=== PATIENT | male | born 1965 | race Caucasian/White ===

== ENCOUNTER 2016-10-18 12:53 | Emergency (ER) | payer OTHER ==
--- NOTE | 2016-10-18 14:16 | ED NURSING NOTES ---
Clinical Report - Nurses [facility] [address] [place] [address] 10/18/2016 12:54 Patient: NARDA NAJERA TRIAGE Triage time 1333 PM. Acuity: LEVEL 4. Chief Complaint: INJURY TO RIGHT HAND. Alert. No acute distress. HERSON COMA SCORE: [place] Coma Scale: 15- eyes open spontaneously (4); best verbal response- oriented x 4 (5); best motor response- obeys commands (6). --13:41 Cindy Muro R.N. 13:34 10/18/16. BP: 133/68 (regular adult cuff) taken on the left arm, while sitting. HR: 71. RR: 12. O2 saturation: 97% on room air. Temp: 98.2 F (oral). Pain level now: 10. --13:41 Cindy Muro R.N. Weight: 83.9 kg stated. Height/Length: 72 inches Per Patient. BMI: 25.1. --13:36 Cindy Muro R.N. Medications None. --13:37 Cindy Muro R.N. Allergies Codeine. --13:43 Cindy Muro R.N. Medication/allergy information source: the patient. --13:41 Cindy Muro R.N. History Arrived by private vehicle. Historian: patient. ( Pt states got bit 2 days ago while cleaning out his garage, felt a prick while wearing gloves, did noticed a couple of spiders around. Pt did try to anjali it himself last night and today, swollen and red with pain. Pt does admit having chills/no fevers). This occurred (2 days). Occurred at home. Mechanism of injury: he sustained an animal bite. (pt thinks is a spider "it has happened before"). Treatment ARMATURE TESTER: None. PAST MEDICAL HX: Tetanus status: unknown. Immunizations: status is unknown. SOCIAL HX: Former smoker. History of drug use: marijuana. Recently used drugs today. No alcohol use. No infectious disease exposure. ABUSE ASSESSMENT: No report of abuse. SELF HARM ASSESSMENT: A self harm assessment was performed. The patient answered "no" to the question "Do you have thoughts of harming or killing yourself?" and "Have you recently had thoughts about harming or killing others?". FALL RISK ASSESSMENT: Fall risk assessment completed. No fall risk identified. NUTRITIONAL RISK ASSESSMENT: The nutritional risk assessment revealed no deficiencies. FUNCTIONAL ASSESSMENT: Functional assessment: no impairments noted. LEARNING NEEDS ASSESSMENT: The learning needs assessment revealed no barriers. SKIN INTEGRITY ASSESSMENT: Skin integrity risk assessment completed. No skin integrity risk identified. --13:41 Cindy Muro R.N. PROBLEMS: Sepsis. Immunizations. Neck Pain. Tetanus Status. Cellulitis. Abscess. --13:37 Cindy Muro R.N. ADDITIONAL SURGERIES: Neck Surgery. --13:37 Cindy Muro R.N. Interventions ID band on patient. --13:41 Cindy Muro R.N. PHYSICAL ASSESSMENT Ambulatory to room. GENERAL / NEURO / PSYCH: Oriented X 4. Appears in no acute distress. EXTREMITIES: Capillary refill is less than 2 seconds in the extremities. Extremity pulses are within normal limits. Right hand: tenderness, swelling and erythema (right pinky finger). No deformity. SKIN: Skin intact. Skin is warm and dry. --13:42 Cindy Muro R.N. NURSING PROGRESS NOTES The initial plan of care for this patient has been created This plan of care was discussed with the patient. Right upper arm elevated. Reassurance given. Call light placed in reach. Brakes of bed on. Brakes of chair on. --13:42 Cindy Muro R.N. 13:45 10/18/2016 Bactrim DS (Sulfamethoxazole-TMP DS) PO Tablets 1 tab given. Allergies verified and confirmed 5 rights. --13:45 Cindy Muro R.N. 13:45 10/18/2016 Keflex (Cephalexin) PO Tablets 500 mg given. Allergies verified and confirmed 5 rights. --13:45 Cindy Muro R.N. DISPOSITION / DISCHARGE Departure time: 1450 PM. Condition at departure: improved and stable. The goals identified in the patient's plan of care were met. No learning barriers present. Discharge instructions provided and reviewed with the patient. Reviewed medication(s) side effects, precautions, dosing and course information. Prescription(s) given to the patient. Reviewed skin care instructions. Activity restrictions (minimal use of injured extremity and rest) reviewed. Patient verbalized understanding. Written instructions provided in Uzbek. ( PT expresses understanding of follow-up, and instructions on wound care.). No diet instructions or stop smoking instructions. The patient was discharged by the physician occupational therapy assistant. He was discharged home and unaccompanied at time of discharge. He left the Emergency Department ambulatory and via private vehicle. Patient driving. FALL RISK ASSESSMENT: Fall risk assessment completed. No fall risk identified. --14:50 Cindy Muro R.N. 14:47 10/18/16. BP: 128/64. HR: 71. RR: 12. O2 saturation: 97% on room air. Temp: 98.3 F (oral). Pain level now: 0/10. --14:50 Cindy Muro R.N. Locked/Released at 10/18/2016 14:51 by Cindy Muro R.N.
--- NOTE | 2016-10-18 14:16 | ED ORDER SUMMARY ---
..... Patient: NARDA NAJERA OrderSheet [facility] VisitID: [id number] [address] [place] [address] 51y, M Registration Date/Time: 10/18/2016 ORDER SHEET Weight: 83.9 kg (stated) Allergies: Codeine GENERAL ORDERS: MEDICATION ORDERS: Bactrim DS PO (Tablet 800-160 mg) 1 tab (NOW) (13:36 10/18/2016 Desean P.A.-C) (13:45 Radha R.N.) Keflex PO 500 mg (NOW) (13:36 10/18/2016 Desean P.A.-C) (13:45 Radha R.N.) IV FLUIDS: ORDER SHEET NOTES: [Electronically signed by Cindy Muro R.N. (14:51 10/18/2016)] [Electronically signed by Delores Baldwin P.ADiane-Hardik (14:58 10/18/2016)] [Electronically locked/signed by Cindy Muro R.N. (14:51 10/18/2016)]
--- NOTE | 2016-10-18 14:16 | ED CLINICAL REPORT ---
Clinical Report - Physicians/Mid Levels [facility] [address] [place] [address] 10/18/2016 12:54 Patient: NARDA NAJERA Time Seen: 13:41 Oct 18 2016. Arrived- By private vehicle. Historian- patient. HISTORY OF PRESENT ILLNESS Chief Complaint: SKIN RASH, LESION, BOIL and TENDER AREA. This started just prior to arrival and is still present. It is described as painful. It has been located on the right upper extremity. (Patient reports possible spider bites of the right fifth digit. Some drainage from the area on the right 5th digit). REVIEW OF SYSTEMS No fever, chills, difficulty breathing, hoarseness or headache. No abdominal pain or difficulty with urination. All systems otherwise negative, except as recorded above. PAST HISTORY Tdap< 5 years. SOCIAL HISTORY Former smoker. History of drug use: marijuana. ADDITIONAL NOTES The nursing notes have been reviewed. PHYSICAL EXAM Vital Signs: 10/18/2016 13:34 BP: 133/68. HR: 71. RR: 12. O2 saturation: 97%. Temp: 98.2 F. Pain level now: 5/10. Appearance: Alert. ENT: Ears normal. Nose normal. Neck: No lymphadenopathy. CVS: Normal heart rate and rhythm. Heart sounds normal. Respiratory: No respiratory distress. Breath sounds normal. Skin: Small area of erythema with tenderness and warmth (R. 5th digit with dorsal surface distal to the dip, with erythema, swelling, Full extension, and rom.). Cellulitis. Extremities: (full extension/ flexion. No lymphagetic streaking). PROGRESS AND PROCEDURES Incision & Drainage of Abscess: Time: 14:57 Oct 18 2016. Time-out completed immediately before the procedure. The abscess is located (R. 5th digit). The risks of the procedure, benefits and alternatives were explained. Anesthesia provided by digital block using 0.25% Marcaine. Skin cleansed with Betadine. The abscess was incised with a #11 surgical blade. A small amount of pus was drained. Course of Care: Patient with no signs of lymphangitic streaking, no signs of tenosynovitis. Patient very stable. Afebrile. Tetanus immunization updated in the ER. To follow-up outpatient. Patient is stable. Physical exam findings are improved. Patient/family counseled. Disposition: Discharged. CLINICAL IMPRESSION Cellulitis of the right little finger. INSTRUCTIONS (place finger into soaking water with salt/ or soap that is very warm and keep such there dipping for 5-10 mins, repeat this 5x daily Follow up with [facility] to ensure improvement or your regular [facility] ). Prescription Medications: Hydrocodone/APAP 5mg / 325mg: take 1 orally every 6 hours as needed for pain. Dispense ten (10). No refill. Bactrim DS 800 mg / 160 mg: take 1 tablet orally every 12 hours for 10 days. No refill. Substitution is permissible. Keflex 500 mg: take 1 capsule orally every 8 hours for 10 days. No refill. Substitution is permissible. (Electronically signed by eDlores Baldwin P.A.-C 10/18/2016 14:58)
--- NOTE | 2016-10-18 14:16 | ED NURSING NOTES ---
Clinical Report - Nurses [facility] [address] [place] [address] 10/18/2016 12:54 Patient: NARDA NAJERA TRIAGE Triage time 1333 PM. Acuity: LEVEL 4. Chief Complaint: INJURY TO RIGHT HAND. Alert. No acute distress. HERSON COMA SCORE: [place] Coma Scale: 15- eyes open spontaneously (4); best verbal response- oriented x 4 (5); best motor response- obeys commands (6). --13:41 Cindy Muro R.N. 13:34 10/18/16. BP: 133/68 (regular adult cuff) taken on the left arm, while sitting. HR: 71. RR: 12. O2 saturation: 97% on room air. Temp: 98.2 F (oral). Pain level now: 10. --13:41 Cindy Muro R.N. Weight: 83.9 kg stated. Height/Length: 72 inches Per Patient. BMI: 25.1. --13:36 Cindy Muro R.N. Medications None. --13:37 Cindy Muro R.N. Allergies Codeine. --13:43 Cindy Muro R.N. Medication/allergy information source: the patient. --13:41 Cindy Muro R.N. History Arrived by private vehicle. Historian: patient. ( Pt states got bit 2 days ago while cleaning out his garage, felt a prick while wearing gloves, did noticed a couple of spiders around. Pt did try to anjali it himself last night and today, swollen and red with pain. Pt does admit having chills/no fevers). This occurred (2 days). Occurred at home. Mechanism of injury: he sustained an animal bite. (pt thinks is a spider "it has happened before"). Treatment GROCERY BAGGER: None. PAST MEDICAL HX: Tetanus status: unknown. Immunizations: status is unknown. SOCIAL HX: Former smoker. History of drug use: marijuana. Recently used drugs today. No alcohol use. No infectious disease exposure. ABUSE ASSESSMENT: No report of abuse. SELF HARM ASSESSMENT: A self harm assessment was performed. The patient answered "no" to the question "Do you have thoughts of harming or killing yourself?" and "Have you recently had thoughts about harming or killing others?". FALL RISK ASSESSMENT: Fall risk assessment completed. No fall risk identified. NUTRITIONAL RISK ASSESSMENT: The nutritional risk assessment revealed no deficiencies. FUNCTIONAL ASSESSMENT: Functional assessment: no impairments noted. LEARNING NEEDS ASSESSMENT: The learning needs assessment revealed no barriers. SKIN INTEGRITY ASSESSMENT: Skin integrity risk assessment completed. No skin integrity risk identified. --13:41 Cindy Muro R.N. PROBLEMS: Sepsis. Immunizations. Neck Pain. Tetanus Status. Cellulitis. Abscess. --13:37 Cindy Muro R.N. ADDITIONAL SURGERIES: Neck Surgery. --13:37 Cindy Muro R.N. Interventions ID band on patient. --13:41 Cindy Muro R.N. PHYSICAL ASSESSMENT Ambulatory to room. GENERAL / NEURO / PSYCH: Oriented X 4. Appears in no acute distress. EXTREMITIES: Capillary refill is less than 2 seconds in the extremities. Extremity pulses are within normal limits. Right hand: tenderness, swelling and erythema (right pinky finger). No deformity. SKIN: Skin intact. Skin is warm and dry. --13:42 Cindy Muro R.N. NURSING PROGRESS NOTES The initial plan of care for this patient has been created This plan of care was discussed with the patient. Right upper arm elevated. Reassurance given. Call light placed in reach. Brakes of bed on. Brakes of chair on. --13:42 Cindy Muro R.N. 13:45 10/18/2016 Bactrim DS (Sulfamethoxazole-TMP DS) PO Tablets 1 tab given. Allergies verified and confirmed 5 rights. --13:45 Cindy Muro R.N. 13:45 10/18/2016 Keflex (Cephalexin) PO Tablets 500 mg given. Allergies verified and confirmed 5 rights. --13:45 Cindy Muro R.N. DISPOSITION / DISCHARGE Departure time: 1450 PM. Condition at departure: improved and stable. The goals identified in the patient's plan of care were met. No learning barriers present. Discharge instructions provided and reviewed with the patient. Reviewed medication(s) side effects, precautions, dosing and course information. Prescription(s) given to the patient. Reviewed skin care instructions. Activity restrictions (minimal use of injured extremity and rest) reviewed. Patient verbalized understanding. Written instructions provided in Mongolian. ( PT expresses understanding of follow-up, and instructions on wound care.). No diet instructions or stop smoking instructions. The patient was discharged by the physician school health assistant. He was discharged home and unaccompanied at time of discharge. He left the Emergency Department ambulatory and via private vehicle. Patient driving. FALL RISK ASSESSMENT: Fall risk assessment completed. No fall risk identified. --14:50 Cindy Muro R.N. 14:47 10/18/16. BP: 128/64. HR: 71. RR: 12. O2 saturation: 97% on room air. Temp: 98.3 F (oral). Pain level now: 0/10. --14:50 Cindy Muro R.N. Locked/Released at 10/18/2016 14:51 by Cindy Muro R.N.
--- NOTE | 2016-10-18 14:16 | ED ORDER SUMMARY ---
..... Patient: NARDA NAJERA OrderSheet [facility] VisitID: [id number] [address] [place] [address] 51y, M Registration Date/Time: 10/18/2016 ORDER SHEET Weight: 83.9 kg (stated) Allergies: Codeine GENERAL ORDERS: MEDICATION ORDERS: Bactrim DS PO (Tablet 800-160 mg) 1 tab (NOW) (13:36 10/18/2016 Desean P.A.-C) (13:45 Radha R.N.) Keflex PO 500 mg (NOW) (13:36 10/18/2016 Desean P.A.-C) (13:45 Radha R.N.) IV FLUIDS: ORDER SHEET NOTES: [Electronically signed by Cindy Muro R.N. (14:51 10/18/2016)] [Electronically signed by Delores Baldwin P.ADiane-Hardik (14:58 10/18/2016)] [Electronically locked/signed by Cindy Muro R.N. (14:51 10/18/2016)]
--- NOTE | 2016-10-18 14:16 | ED CLINICAL REPORT ---
Clinical Report - Physicians/Mid Levels [facility] [address] [place] [address] 10/18/2016 12:54 Patient: NARDA NAJERA Time Seen: 13:41 Oct 18 2016. Arrived- By private vehicle. Historian- patient. HISTORY OF PRESENT ILLNESS Chief Complaint: SKIN RASH, LESION, BOIL and TENDER AREA. This started just prior to arrival and is still present. It is described as painful. It has been located on the right upper extremity. (Patient reports possible spider bites of the right fifth digit. Some drainage from the area on the right 5th digit). REVIEW OF SYSTEMS No fever, chills, difficulty breathing, hoarseness or headache. No abdominal pain or difficulty with urination. All systems otherwise negative, except as recorded above. PAST HISTORY Tdap< 5 years. SOCIAL HISTORY Former smoker. History of drug use: marijuana. ADDITIONAL NOTES The nursing notes have been reviewed. PHYSICAL EXAM Vital Signs: 10/18/2016 13:34 BP: 133/68. HR: 71. RR: 12. O2 saturation: 97%. Temp: 98.2 F. Pain level now: 5/10. Appearance: Alert. ENT: Ears normal. Nose normal. Neck: No lymphadenopathy. CVS: Normal heart rate and rhythm. Heart sounds normal. Respiratory: No respiratory distress. Breath sounds normal. Skin: Small area of erythema with tenderness and warmth (R. 5th digit with dorsal surface distal to the dip, with erythema, swelling, Full extension, and rom.). Cellulitis. Extremities: (full extension/ flexion. No lymphagetic streaking). PROGRESS AND PROCEDURES Incision & Drainage of Abscess: Time: 14:57 Oct 18 2016. Time-out completed immediately before the procedure. The abscess is located (R. 5th digit). The risks of the procedure, benefits and alternatives were explained. Anesthesia provided by digital block using 0.25% Marcaine. Skin cleansed with Betadine. The abscess was incised with a #11 surgical blade. A small amount of pus was drained. Course of Care: Patient with no signs of lymphangitic streaking, no signs of tenosynovitis. Patient very stable. Afebrile. Tetanus immunization updated in the ER. To follow-up outpatient. Patient is stable. Physical exam findings are improved. Patient/family counseled. Disposition: Discharged. CLINICAL IMPRESSION Cellulitis of the right little finger. INSTRUCTIONS (place finger into soaking water with salt/ or soap that is very warm and keep such there dipping for 5-10 mins, repeat this 5x daily Follow up with [facility] to ensure improvement or your regular [facility] ). Prescription Medications: Hydrocodone/APAP 5mg / 325mg: take 1 orally every 6 hours as needed for pain. Dispense ten (10). No refill. Bactrim DS 800 mg / 160 mg: take 1 tablet orally every 12 hours for 10 days. No refill. Substitution is permissible. Keflex 500 mg: take 1 capsule orally every 8 hours for 10 days. No refill. Substitution is permissible. (Electronically signed by Delores Baldwin P.A.-C 10/18/2016 14:58)
--- NOTE | 2016-10-18 14:58 | ED MED RECONCILIATION SUMMARY ---
Patient: NARDA NAJERA Medication Reconciliation Report [facility] VisitID: [id number] [address] [place] [address] 51y, M Registration Date/Time: 10/18/2016 Weight: 83.9 kg Height/Length: 72 in. BMI: 25.1 ALLERGIES: Codeine The patient's Home Medications are listed below: NONE. The source(s) of the original Home Medication information: patient The following Medications were given to the patient in the Emergency Department: Bactrim DS [PO] PO 1 tab, administered: 10/18/2016 1:45:00 PM Keflex [PO] PO 500 mg, administered: 10/18/2016 1:45:00 PM The following Medications were prescribed to the patient: Hydrocodone/APAP 5mg / 325mg: take 1 orally every 6 hours as needed for pain. Dispense ten (10). No refill. -- Delores Baldwin, P.A.-Hardik Bactrim DS 800 mg / 160 mg: take 1 tablet orally every 12 hours for 10 days. No refill. Substitution is permissible. -- Delores Baldwin, P.A.-C Keflex 500 mg: take 1 capsule orally every 8 hours for 10 days. No refill. Substitution is permissible. -- Delores Baldwin, P.A.-C
--- NOTE | 2016-10-18 14:58 | ED MAR SUMMARY ---
..... Medication Administration Record [facility] [address] [place] [address] Patient: NARDA NAJERA Visit ID: [id number] 51y, M Weight: 83.9 kg Height/Length: 72 in BMI: 25.1 ALLERGIES: Codeine Given 13:45 10/18/2016 Cindy Muro RDianeN. Medication Administered: BACTRIM DS [PO] (SULFAMETHOXAZOLE-TMP DS), Dose: 1 tab Tablets PO. Medication Ordered: Bactrim DS PO (Tablet 800-160 mg) 1 tab (NOW). Given 13:45 10/18/2016 Cindy Muro, R.N. Medication Administered: KEFLEX [PO] (CEPHALEXIN), Dose: 500 mg Tablets PO. Medication Ordered: Keflex PO 500 mg (NOW).
--- NOTE | 2016-10-18 14:58 | ED DISCHARGE INSTRUCTIONS ---
Patient: NARDA NAJERA General Instructions [facility] VisitID: [id number] [address] [place] [address] 51y, M Registration Date/Time: 10/18/2016 Cellulitis of the right little finger. INSTRUCTIONS (place finger into soaking water with salt/ or soap that is very warm and keep such there dipping for 5-10 mins, repeat this 5x daily Follow up with [facility] to ensure improvement or your regular [facility] ). Prescription Medications: Hydrocodone/APAP 5mg / 325mg: take 1 orally every 6 hours as needed for pain. Dispense ten (10). No refill. Bactrim DS 800 mg / 160 mg: take 1 tablet orally every 12 hours for 10 days. No refill. Substitution is permissible. Keflex 500 mg: take 1 capsule orally every 8 hours for 10 days. No refill. Substitution is permissible. ADDITIONAL INFORMATION Cellulitis You have an infection of the skin known as cellulitis. This usually starts with a scrape, cut, insect bite, blister or other opening in the skin which becomes infected. This is a serious condition. It must be watched closely to be sure the infection is not spreading. With antibiotic treatment, the size of the red area will gradually shrink in size until the skin returns to normal. This will take 7-10 days. The red area should never increase in size once the antibiotic medicine has been started. Occasionally, an infection will be resistant to one antibiotic and another one will have to be used. Home Care: 1) Limit the use of the affected part, since excess movement can cause the infection to spread. 2) If the infection is on your leg, walk as little as possible during the first few days of the treatment. Keep your leg elevated while sitting. This will reduce swelling. 3) Take all of the antibiotic medicine exactly as directed until it is gone. Be careful not to miss any doses, especially during the first seven days. Follow Up with your doctor or this facility as directed. Check the infected area daily for the warning signs listed below. Get Prompt Medical Attention if any of the following occur: -- Spreading area of redness -- Increasing swelling or pain -- Appearance of pus or drainage -- Fever over 100.4 F (38.0 C) oral, or over 101.4 F (38.6 C) rectal, after two days on antibiotics Hydrocodone Bitartrate, Acetaminophen Oral tablet What is this medicine? ACETAMINOPHEN; HYDROCODONE (a set a GEORGES drew fen; wanda droe KOE done) is a pain reliever. It is used to treat mild to moderate pain. How should I use this medicine? Take this medicine by mouth. Swallow it with a full glass of water. Follow the directions on the prescription label. If the medicine upsets your stomach, take the medicine with food or milk. Do not take more than you are told to take. Talk to your clinical sociologist regarding the use of this medicine in children. This medicine is not approved for use in children. What side effects may I notice from receiving this medicine? Side effects that you should report to your doctor or health multi care technician as soon as possible: allergic reactions like skin rash, itching or hives, swelling of the face, lips, or tongue breathing problems confusion feeling faint or lightheaded, falls stomach pain yellowing of the eyes or skin Side effects that usually do not require medical attention (report to your doctor or health multi care technician if they continue or are bothersome): nausea, vomiting stomach upset What may interact with this medicine? alcohol antihistamines isoniazid medicines for depression, anxiety, or psychotic disturbances medicines for sleep muscle relaxants naltrexone narcotic medicines (opiates) for pain phenobarbital ritonavir tramadol What if I miss a dose? If you miss a dose, take it as soon as you can. If it is almost time for your next dose, take only that dose. Do not take double or extra doses. Where should I keep my medicine? Keep out of the reach of children. This medicine can be abused. Keep your medicine in a safe place to protect it from theft. Do not share this medicine with anyone. Selling or giving away this medicine is dangerous and against the law. Store at room temperature between 15 and 30 degrees C (59 and 86 degrees F). Protect from light. Keep container tightly closed. Throw away any unused medicine after the expiration date. Discard unused medicine and used packaging carefully. Pets and children can be harmed if they find used or lost packages. What should I tell my health care provider before I take this medicine? They need to know if you have any of these conditions: brain tumor Crohn's disease, inflammatory bowel disease, or ulcerative colitis drink more than 3 alcohol-containing drinks per day drug abuse or addiction head injury heart or circulation problems kidney disease or problems going to the bathroom liver disease lung disease, asthma, or breathing problems an unusual or allergic reaction to acetaminophen, hydrocodone, other opioid analgesics, other medicines, foods, dyes, or preservatives or trying to get breast-feeding What should I watch for while using this medicine? Tell your doctor or health multi care technician if your pain does not go away, if it gets worse, or if you have new or a different type of pain. You may develop tolerance to the medicine. Tolerance means that you will need a higher dose of the medicine for pain relief. Tolerance is normal and is expected if you take the medicine for a long time. Do not suddenly stop taking your medicine because you may develop a severe reaction. Your body becomes used to the medicine. This does NOT mean you are addicted. Addiction is a behavior related to getting and using a drug for a non-medical reason. If you have pain, you have a medical reason to take pain medicine. Your doctor will tell you how much medicine to take. If your doctor wants you to stop the medicine, the dose will be slowly lowered over time to avoid any side effects. You may get drowsy or dizzy when you first start taking the medicine or change doses. Do not drive, use machinery, or do anything that may be dangerous until you know how the medicine affects you. Stand or sit up slowly. There are different types of narcotic medicines (opiates) for pain. If you take more than one type at the same time, you may have more side effects. Give your health care provider a list of all medicines you use. Your doctor will tell you how much medicine to take. Do not take more medicine than directed. Call emergency for help if you have problems breathing. The medicine will cause constipation. Try to have a bowel movement at least every 2 to 3 days. If you do not have a bowel movement for 3 days, call your doctor or health multi care technician. Too much acetaminophen can be very dangerous. Do not take Tylenol (acetaminophen) or medicines that contain acetaminophen with this medicine. Many non-prescription medicines contain acetaminophen. Always read the labels carefully. Sulfamethoxazole, Trimethoprim Oral tablet What is this medicine? SULFAMETHOXAZOLE; TRIMETHOPRIM or SMX-TMP (suhl fuh meth OK radha zohl; trye METH oh prim) is a combination of a sulfonamide antibiotic and a second antibiotic, trimethoprim. It is used to treat or prevent certain kinds of bacterial infections. It will not work for colds, flu, or other viral infections. How should I use this medicine? Take this medicine by mouth with a full glass of water. Follow the directions on the prescription label. Take your medicine at regular intervals. Do not take it more often than directed. Do not skip doses or stop your medicine early. Talk to your clinical sociologist regarding the use of this medicine in children. Special care may be needed. This medicine has been used in children as young as 2 months of age. What side effects may I notice from receiving this medicine? Side effects that you should report to your doctor or health multi care technician as soon as possible: allergic reactions like skin rash or hives, swelling of the face, lips, or tongue breathing problems fever or chills, sore throat irregular heartbeat, chest pain joint or muscle pain pain or difficulty passing urine red pinpoint spots on skin redness, blistering, peeling or loosening of the skin, including inside the mouth unusual bleeding or bruising unusually weak or tired yellowing of the eyes or skin Side effects that usually do not require medical attention (report to your doctor or health multi care technician if they continue or are bothersome): diarrhea dizziness headache loss of appetite nausea, vomiting nervousness What may interact with this medicine? Do not take this medicine with any of the following medications: aminobenzoate potassium dofetilide metronidazole This medicine may also interact with the following medications: ASIA inhibitors like benazepril, enalapril, lisinopril, and ramipril cyclosporine digoxin diuretics indomethacin medicines for diabetes methenamine methotrexate phenytoin potassium supplements pyrimethamine sulfinpyrazone tricyclic antidepressants warfarin What if I miss a dose? If you miss a dose, take it as soon as you can. If it is almost time for your next dose, take only that dose. Do not take double or extra doses. Where should I keep my medicine? Keep out of the reach of children. Store at room temperature between 20 to 25 degrees C (68 to 77 degrees F). Protect from light. Throw away any unused medicine after the expiration date. What should I tell my health care provider before I take this medicine? They need to know if you have any of these conditions: anemia asthma being treated with anticonvulsants if you frequently drink alcohol containing drinks kidney disease liver disease low level of folic acid or [id number] dehydrogenase poor nutrition or malabsorption porphyria severe allergies thyroid disorder an unusual or allergic reaction to sulfamethoxazole, trimethoprim, sulfa drugs, other medicines, foods, dyes, or preservatives or trying to get breast-feeding What should I watch for while using this medicine? Tell your doctor or health multi care technician if your symptoms do not improve. Drink several glasses of water a day to reduce the risk of kidney problems. Do not treat diarrhea with over the counter products. Contact your doctor if you have diarrhea that lasts more than 2 days or if it is severe and watery. This medicine can make you more sensitive to the sun. Keep out of the sun. If you cannot avoid being in the sun, wear protective clothing and use a sunscreen. Do not use sun lamps or tanning beds/booths. Cephalexin Monohydrate Oral tablet What is this medicine? CEPHALEXIN (sef a CHINO in) is a cephalosporin antibiotic. It is used to treat certain kinds of bacterial infections It will not work for colds, flu, or other viral infections. How should I use this medicine? Take this medicine by mouth with a full glass of water. Follow the directions on the prescription label. This medicine can be taken with or without food. Take your medicine at regular intervals. Do not take your medicine more often than directed. Take all of your medicine as directed even if you think you are better. Do not skip doses or stop your medicine early. Talk to your clinical sociologist regarding the use of this medicine in children. While this drug may be prescribed for selected conditions, precautions do apply. What side effects may I notice from receiving this medicine? Side effects that you should report to your doctor or health multi care technician as soon as possible: allergic reactions like skin rash, itching or hives, swelling of the face, lips, or tongue breathing problems pain or trouble passing urine redness, blistering, peeling or loosening of the skin, including inside the mouth severe or watery diarrhea unusually weak or tired yellowing of the eyes, skin Side effects that usually do not require medical attention (report to your doctor or health multi care technician if they continue or are bothersome): gas or heartburn genital or anal irritation headache joint or muscle pain nausea, vomiting What may interact with this medicine? probenecid some other antibiotics What if I miss a dose? If you miss a dose, take it as soon as you can. If it is almost time for your next dose, take only that dose. Do not take double or extra doses. There should be at least 4 to 6 hours between doses. Where should I keep my medicine? Keep out of the reach of children. Store at room temperature between 59 and 86 degrees F (15 and 30 degrees C). Throw away any unused medicine after the expiration date. What should I tell my health care provider before I take this medicine? They need to know if you have any of these conditions: kidney disease stomach or intestine problems, especially colitis an unusual or allergic reaction to cephalexin, other cephalosporins, penicillins, other antibiotics, medicines, foods, dyes or preservatives or trying to get breast-feeding What should I watch for while using this medicine? Tell your doctor or health multi care technician if your symptoms do not begin to improve in a few days. Do not treat diarrhea with over the counter products. Contact your doctor if you have diarrhea that lasts more than 2 days or if it is severe and watery. If you have diabetes, you may get a false-positive result for sugar in your urine. Check with your doctor or health multi care technician. You have been given the following additional information: Cellulitis Hydrocodone Bitartrate, Acetaminophen Oral tablet Sulfamethoxazole, Trimethoprim Oral tablet Cephalexin Monohydrate Oral tablet (Electronically signed by Delores Baldwin P.A.-C 10/18/2016 14:58)
--- NOTE | 2016-10-18 14:58 | ED MED RECONCILIATION SUMMARY ---
Patient: NARDA NAJERA Medication Reconciliation Report [facility] VisitID: [id number] [address] [place] [address] 51y, M Registration Date/Time: 10/18/2016 Weight: 83.9 kg Height/Length: 72 in. BMI: 25.1 ALLERGIES: Codeine The patient's Home Medications are listed below: NONE. The source(s) of the original Home Medication information: patient The following Medications were given to the patient in the Emergency Department: Bactrim DS [PO] PO 1 tab, administered: 10/18/2016 1:45:00 PM Keflex [PO] PO 500 mg, administered: 10/18/2016 1:45:00 PM The following Medications were prescribed to the patient: Hydrocodone/APAP 5mg / 325mg: take 1 orally every 6 hours as needed for pain. Dispense ten (10). No refill. -- Delores Baldwin, P.A.-Hardik Bactrim DS 800 mg / 160 mg: take 1 tablet orally every 12 hours for 10 days. No refill. Substitution is permissible. -- Delores Baldwin, P.A.-C Keflex 500 mg: take 1 capsule orally every 8 hours for 10 days. No refill. Substitution is permissible. -- Delores Baldwin, P.A.-C
--- NOTE | 2016-10-18 14:58 | ED MAR SUMMARY ---
..... Medication Administration Record [facility] [address] [place] [address] Patient: NARDA NAJERA Visit ID: [id number] 51y, M Weight: 83.9 kg Height/Length: 72 in BMI: 25.1 ALLERGIES: Codeine Given 13:45 10/18/2016 Cindy Muro RDianeN. Medication Administered: BACTRIM DS [PO] (SULFAMETHOXAZOLE-TMP DS), Dose: 1 tab Tablets PO. Medication Ordered: Bactrim DS PO (Tablet 800-160 mg) 1 tab (NOW). Given 13:45 10/18/2016 Cindy Muro, R.N. Medication Administered: KEFLEX [PO] (CEPHALEXIN), Dose: 500 mg Tablets PO. Medication Ordered: Keflex PO 500 mg (NOW).
--- NOTE | 2016-10-18 14:58 | ED DISCHARGE INSTRUCTIONS ---
Patient: NARDA NAJERA General Instructions [facility] VisitID: [id number] [address] [place] [address] 51y, M Registration Date/Time: 10/18/2016 Cellulitis of the right little finger. INSTRUCTIONS (place finger into soaking water with salt/ or soap that is very warm and keep such there dipping for 5-10 mins, repeat this 5x daily Follow up with [facility] to ensure improvement or your regular [facility] ). Prescription Medications: Hydrocodone/APAP 5mg / 325mg: take 1 orally every 6 hours as needed for pain. Dispense ten (10). No refill. Bactrim DS 800 mg / 160 mg: take 1 tablet orally every 12 hours for 10 days. No refill. Substitution is permissible. Keflex 500 mg: take 1 capsule orally every 8 hours for 10 days. No refill. Substitution is permissible. ADDITIONAL INFORMATION Cellulitis You have an infection of the skin known as cellulitis. This usually starts with a scrape, cut, insect bite, blister or other opening in the skin which becomes infected. This is a serious condition. It must be watched closely to be sure the infection is not spreading. With antibiotic treatment, the size of the red area will gradually shrink in size until the skin returns to normal. This will take 7-10 days. The red area should never increase in size once the antibiotic medicine has been started. Occasionally, an infection will be resistant to one antibiotic and another one will have to be used. Home Care: 1) Limit the use of the affected part, since excess movement can cause the infection to spread. 2) If the infection is on your leg, walk as little as possible during the first few days of the treatment. Keep your leg elevated while sitting. This will reduce swelling. 3) Take all of the antibiotic medicine exactly as directed until it is gone. Be careful not to miss any doses, especially during the first seven days. Follow Up with your doctor or this facility as directed. Check the infected area daily for the warning signs listed below. Get Prompt Medical Attention if any of the following occur: -- Spreading area of redness -- Increasing swelling or pain -- Appearance of pus or drainage -- Fever over 100.4 F (38.0 C) oral, or over 101.4 F (38.6 C) rectal, after two days on antibiotics Hydrocodone Bitartrate, Acetaminophen Oral tablet What is this medicine? ACETAMINOPHEN; HYDROCODONE (a set a GEORGES drew fen; wanda droe KOE done) is a pain reliever. It is used to treat mild to moderate pain. How should I use this medicine? Take this medicine by mouth. Swallow it with a full glass of water. Follow the directions on the prescription label. If the medicine upsets your stomach, take the medicine with food or milk. Do not take more than you are told to take. Talk to your annealing torch operator regarding the use of this medicine in children. This medicine is not approved for use in children. What side effects may I notice from receiving this medicine? Side effects that you should report to your doctor or health healthcare insurance sales agent as soon as possible: allergic reactions like skin rash, itching or hives, swelling of the face, lips, or tongue breathing problems confusion feeling faint or lightheaded, falls stomach pain yellowing of the eyes or skin Side effects that usually do not require medical attention (report to your doctor or health healthcare insurance sales agent if they continue or are bothersome): nausea, vomiting stomach upset What may interact with this medicine? alcohol antihistamines isoniazid medicines for depression, anxiety, or psychotic disturbances medicines for sleep muscle relaxants naltrexone narcotic medicines (opiates) for pain phenobarbital ritonavir tramadol What if I miss a dose? If you miss a dose, take it as soon as you can. If it is almost time for your next dose, take only that dose. Do not take double or extra doses. Where should I keep my medicine? Keep out of the reach of children. This medicine can be abused. Keep your medicine in a safe place to protect it from theft. Do not share this medicine with anyone. Selling or giving away this medicine is dangerous and against the law. Store at room temperature between 15 and 30 degrees C (59 and 86 degrees F). Protect from light. Keep container tightly closed. Throw away any unused medicine after the expiration date. Discard unused medicine and used packaging carefully. Pets and children can be harmed if they find used or lost packages. What should I tell my health care provider before I take this medicine? They need to know if you have any of these conditions: brain tumor Crohn's disease, inflammatory bowel disease, or ulcerative colitis drink more than 3 alcohol-containing drinks per day drug abuse or addiction head injury heart or circulation problems kidney disease or problems going to the bathroom liver disease lung disease, asthma, or breathing problems an unusual or allergic reaction to acetaminophen, hydrocodone, other opioid analgesics, other medicines, foods, dyes, or preservatives or trying to get breast-feeding What should I watch for while using this medicine? Tell your doctor or health healthcare insurance sales agent if your pain does not go away, if it gets worse, or if you have new or a different type of pain. You may develop tolerance to the medicine. Tolerance means that you will need a higher dose of the medicine for pain relief. Tolerance is normal and is expected if you take the medicine for a long time. Do not suddenly stop taking your medicine because you may develop a severe reaction. Your body becomes used to the medicine. This does NOT mean you are addicted. Addiction is a behavior related to getting and using a drug for a non-medical reason. If you have pain, you have a medical reason to take pain medicine. Your doctor will tell you how much medicine to take. If your doctor wants you to stop the medicine, the dose will be slowly lowered over time to avoid any side effects. You may get drowsy or dizzy when you first start taking the medicine or change doses. Do not drive, use machinery, or do anything that may be dangerous until you know how the medicine affects you. Stand or sit up slowly. There are different types of narcotic medicines (opiates) for pain. If you take more than one type at the same time, you may have more side effects. Give your health care provider a list of all medicines you use. Your doctor will tell you how much medicine to take. Do not take more medicine than directed. Call emergency for help if you have problems breathing. The medicine will cause constipation. Try to have a bowel movement at least every 2 to 3 days. If you do not have a bowel movement for 3 days, call your doctor or health healthcare insurance sales agent. Too much acetaminophen can be very dangerous. Do not take Tylenol (acetaminophen) or medicines that contain acetaminophen with this medicine. Many non-prescription medicines contain acetaminophen. Always read the labels carefully. Sulfamethoxazole, Trimethoprim Oral tablet What is this medicine? SULFAMETHOXAZOLE; TRIMETHOPRIM or SMX-TMP (suhl fuh meth OK radha zohl; trye METH oh prim) is a combination of a sulfonamide antibiotic and a second antibiotic, trimethoprim. It is used to treat or prevent certain kinds of bacterial infections. It will not work for colds, flu, or other viral infections. How should I use this medicine? Take this medicine by mouth with a full glass of water. Follow the directions on the prescription label. Take your medicine at regular intervals. Do not take it more often than directed. Do not skip doses or stop your medicine early. Talk to your annealing torch operator regarding the use of this medicine in children. Special care may be needed. This medicine has been used in children as young as 2 months of age. What side effects may I notice from receiving this medicine? Side effects that you should report to your doctor or health healthcare insurance sales agent as soon as possible: allergic reactions like skin rash or hives, swelling of the face, lips, or tongue breathing problems fever or chills, sore throat irregular heartbeat, chest pain joint or muscle pain pain or difficulty passing urine red pinpoint spots on skin redness, blistering, peeling or loosening of the skin, including inside the mouth unusual bleeding or bruising unusually weak or tired yellowing of the eyes or skin Side effects that usually do not require medical attention (report to your doctor or health healthcare insurance sales agent if they continue or are bothersome): diarrhea dizziness headache loss of appetite nausea, vomiting nervousness What may interact with this medicine? Do not take this medicine with any of the following medications: aminobenzoate potassium dofetilide metronidazole This medicine may also interact with the following medications: ASIA inhibitors like benazepril, enalapril, lisinopril, and ramipril cyclosporine digoxin diuretics indomethacin medicines for diabetes methenamine methotrexate phenytoin potassium supplements pyrimethamine sulfinpyrazone tricyclic antidepressants warfarin What if I miss a dose? If you miss a dose, take it as soon as you can. If it is almost time for your next dose, take only that dose. Do not take double or extra doses. Where should I keep my medicine? Keep out of the reach of children. Store at room temperature between 20 to 25 degrees C (68 to 77 degrees F). Protect from light. Throw away any unused medicine after the expiration date. What should I tell my health care provider before I take this medicine? They need to know if you have any of these conditions: anemia asthma being treated with anticonvulsants if you frequently drink alcohol containing drinks kidney disease liver disease low level of folic acid or [id number] dehydrogenase poor nutrition or malabsorption porphyria severe allergies thyroid disorder an unusual or allergic reaction to sulfamethoxazole, trimethoprim, sulfa drugs, other medicines, foods, dyes, or preservatives or trying to get breast-feeding What should I watch for while using this medicine? Tell your doctor or health healthcare insurance sales agent if your symptoms do not improve. Drink several glasses of water a day to reduce the risk of kidney problems. Do not treat diarrhea with over the counter products. Contact your doctor if you have diarrhea that lasts more than 2 days or if it is severe and watery. This medicine can make you more sensitive to the sun. Keep out of the sun. If you cannot avoid being in the sun, wear protective clothing and use a sunscreen. Do not use sun lamps or tanning beds/booths. Cephalexin Monohydrate Oral tablet What is this medicine? CEPHALEXIN (sef a CHINO in) is a cephalosporin antibiotic. It is used to treat certain kinds of bacterial infections It will not work for colds, flu, or other viral infections. How should I use this medicine? Take this medicine by mouth with a full glass of water. Follow the directions on the prescription label. This medicine can be taken with or without food. Take your medicine at regular intervals. Do not take your medicine more often than directed. Take all of your medicine as directed even if you think you are better. Do not skip doses or stop your medicine early. Talk to your annealing torch operator regarding the use of this medicine in children. While this drug may be prescribed for selected conditions, precautions do apply. What side effects may I notice from receiving this medicine? Side effects that you should report to your doctor or health healthcare insurance sales agent as soon as possible: allergic reactions like skin rash, itching or hives, swelling of the face, lips, or tongue breathing problems pain or trouble passing urine redness, blistering, peeling or loosening of the skin, including inside the mouth severe or watery diarrhea unusually weak or tired yellowing of the eyes, skin Side effects that usually do not require medical attention (report to your doctor or health healthcare insurance sales agent if they continue or are bothersome): gas or heartburn genital or anal irritation headache joint or muscle pain nausea, vomiting What may interact with this medicine? probenecid some other antibiotics What if I miss a dose? If you miss a dose, take it as soon as you can. If it is almost time for your next dose, take only that dose. Do not take double or extra doses. There should be at least 4 to 6 hours between doses. Where should I keep my medicine? Keep out of the reach of children. Store at room temperature between 59 and 86 degrees F (15 and 30 degrees C). Throw away any unused medicine after the expiration date. What should I tell my health care provider before I take this medicine? They need to know if you have any of these conditions: kidney disease stomach or intestine problems, especially colitis an unusual or allergic reaction to cephalexin, other cephalosporins, penicillins, other antibiotics, medicines, foods, dyes or preservatives or trying to get breast-feeding What should I watch for while using this medicine? Tell your doctor or health healthcare insurance sales agent if your symptoms do not begin to improve in a few days. Do not treat diarrhea with over the counter products. Contact your doctor if you have diarrhea that lasts more than 2 days or if it is severe and watery. If you have diabetes, you may get a false-positive result for sugar in your urine. Check with your doctor or health healthcare insurance sales agent. You have been given the following additional information: Cellulitis Hydrocodone Bitartrate, Acetaminophen Oral tablet Sulfamethoxazole, Trimethoprim Oral tablet Cephalexin Monohydrate Oral tablet (Electronically signed by Delores Baldwin P.A.-C 10/18/2016 14:58)
== END 2016-10-18 14:49 | disposition home or self-care (01) ==
LOC: ED SRH 12:53
DX: L03.011 Cellulitis of right finger (principal); Z87.891 Personal history of nicotine dependence; Z88.5 Allergy status to narcotic agent